=== PATIENT | male | born 1970 | race Two or more races ===

== ENCOUNTER 2018-09-20 03:23 | Emergency (ER) | payer MEDICAID ==
[~2018-09-20] VITALS: Ht 172.7 cm; Wt 77.1 kg
[2018-09-20 03:38] VITALS: BP 121/85
[2018-09-20] MEDS ORDERED: LEVOFLOXACIN (750 MG) 750 MG TABLET PO STA (04:08)
[2018-09-20] MEDS ORDERED: LEVOFLOXACIN (750 MG) 750 MG TABLET ONE (04:16)
[2018-09-20] MEDS ORDERED: TDAP [DIPH/PERTUSSIS/TET] 0.5 ML VIAL IM ONE ×2 (04:16→04:30)
--- NOTE | 2018-09-20 04:50 | NUR ---
Patient discharged to home in stable condition. Written and verbal after care instructions given. Patient verbalizes understanding of instruction.
== END 2018-09-20 04:50 | disposition home or self-care (01) ==
LOC: ER 03:29
DX: S91.331A Puncture wound without foreign body, right foot, initial encounter (principal); W22.8XXA Striking against or struck by other objects, initial encounter; Y93.89 Activity, other specified; Y92.89 Other specified places as the place of occurrence of the external cause; Y99.8 Other external cause status
CPT/HCPCS: 90471; 90715; 99283; A4606

== ENCOUNTER 2020-02-15 20:18 | Emergency (ER) | payer MEDICAID ==
[~2020-02-15] VITALS: Ht 170.2 cm; Wt 81.6 kg
[2020-02-15] MEDS ORDERED: KETOROLAC TROMETHAMINE INJ 30 MG/ML VIAL ONE (20:39)
--- NOTE | 2020-02-15 20:40 | NUR ---
PT AAOX4. AMBULATORY WITH STEADY GAIT. BIBSELF C/O LOWER BACK PAIN WHICH IS WORSENING FOR THE PAST THREE DAYS. PT STATED WHEN HE ROLLED IN BED AND HIS BACK STARTED TO HURT. VSS. NO ACUTE DISTRESS NOTED. DENIES TRAUMA.
--- NOTE | 2020-02-15 20:42 | NUR ---
Patient discharged to home in stable condition. Written and verbal after care instructions given. Patient verbalizes understanding of instruction and RX.
[2020-02-15 20:43] VITALS: BP 132/82
[2020-02-15] MEDS ORDERED: KETOROLAC TROMETHAMINE INJ 30 MG/ML VIAL IM ONE (21:00)
== END 2020-02-15 20:46 | disposition home or self-care (01) ==
LOC: ER 20:20
DX: S39.012A Strain of muscle, fascia and tendon of lower back, initial encounter (principal); X58.XXXA Exposure to other specified factors, initial encounter; Y93.89 Activity, other specified; Y92.89 Other specified places as the place of occurrence of the external cause; Y99.8 Other external cause status
CPT/HCPCS: 96372; 99283; J1885

== ENCOUNTER 2022-04-26 17:50 | Emergency (ER) | payer MEDICAID, OTHER ==
[~2022-04-26] VITALS: Ht 165.1 cm; Wt 90.7 kg
[2022-04-26 18:30] VITALS: BP 115/80
[2022-04-26] MEDS ORDERED: KETOROLAC TROMETHAMINE INJ 60 MG/2 ML VIAL IM ONE (19:00)
[2022-04-26] MEDS ORDERED: NAPR-1009 PO (19:52)
[2022-04-26] MEDS ORDERED: KETOROLAC TROMETHAMINE INJ 30 MG/ML VIAL ONE (19:54)
--- NOTE | 2022-04-26 19:58 | NUR ---
Patient discharged to home in stable condition. Written and verbal after care instructions given. Patient verbalizes understanding of instruction.
== END 2022-04-26 19:59 | disposition home or self-care (01) ==
LOC: ER 17:58
DX: M77.11 Lateral epicondylitis, right elbow (principal)
CPT/HCPCS: 99283; 96372; 73080; J1885

== ENCOUNTER 2024-03-08 16:17 | Emergency (ER) | payer OTHER ==
[~2024-03-08] VITALS: Ht 167.6 cm; Wt 73.5 kg
[2024-03-08 16:27] VITALS: BP 137/64; TEMP 98.5; O2SAT 100
[2024-03-08] MEDS ORDERED: ACETAMINOPHEN 325 MG TABLET ONE (17:33)
[2024-03-08] MEDS: ACETAMINOPHEN 325 MG TABLET PO ONE (17:36)
== END 2024-03-08 19:23 | disposition home or self-care (01) ==
LOC: ER 16:18
DX: M25.561 Pain in right knee (principal)
CPT/HCPCS: 73562